=== PATIENT | female | born 1940 | race Caucasian/White ===

== ENCOUNTER → 2016-06-12 | Outpatient (CLI) | payer OTHER ==
[~2016-06-12] MED LIST: FLONASE16 GM; IBUPROFEN800 MG PO; KEFLEX500 MG PO; NORCO 5/325 TAB1 TAB PO; ZITHROMAX PO
--- NOTE | ~2016-06-12 | CR20 ---
[facility] A Service of [facility] & [facility] RADIOLOGY TEXT RESULTS PATIENT: ALEX HERNANDEZ LOCATION: [facility] : 36 UNIT #: [id number] AGE: [address]: Hardeep Awan MD SEX: F ORDER DR: [id number] [facility] [address] [place], [place] [address] [id number] O MR#: [id number] #: [id number] NAME: ALEX HERNANDEZ : 1940 SEX: F STUDY DATE/TIME: 06/12/2016 16:23 UNIT: [facility] ROOM: STUDY DESCRIPTION: CR Ankle Min 3 Views Lt Attending Physician: Hardeep Awan M.D. Referring Physician: Hardeep Awan M.D. Ordering Physician: Hardeep Awan M.D. Primary Care Physician: Amanda Hernandez MEDICAL IMAGING REPORT This report is preliminary unless electronic signature is present EXAM Left ankle, 06/12. INDICATION Eosinophilia and elevated white blood cell count. Pain and swelling in the ankle for 5 months with an open ulcer. FINDINGS 3 views of the left ankle were obtained. No comparisons. Patient is osteopenic. There is mild soft tissue swelling on both sides of the ankle. There are some vascular calcifications noted in the soft tissues. There is a plantar calcaneal spur. There is mild spurring about the tibiotalar joint. No fractures are seen. There is no soft tissue gas. IMPRESSION Osteopenia and soft tissue swelling. No fracture or malalignment is seen. Additional findings as above. Dictated by... Carson Mock Jr., M.D. THIS IS AN ELECTRONICALLY VERIFIED REPORT Carson Mock Jr., M.D. at 06/13/2016 3:49 PM JUSTINE/luz maria TD: 06/13/2016 09:09 JOB #: [id number] MEDICAL IMAGING REPORT COPY
== END | disposition home or self-care (01) ==
LOC: CRAD 15:49
DX: D72.1 Eosinophilia (principal); D72.829 Elevated white blood cell count, unspecified; M85.872 Other specified disorders of bone density and structure, left ankle and foot; M79.89 Other specified soft tissue disorders
CPT/HCPCS: 73610